=== PATIENT | male | born 1980 | race African-American/Black ===

== ENCOUNTER 2023-12-21 09:33 | Outpatient (CLI) | payer OTHER | END 2023-12-21 09:34 | disposition home or self-care (01) | LOC: CSHWCC 09:33 | PROVIDERS: ATTEND Nurse Practitioner Family | DX: I87.323 Chronic venous hypertension (idiopathic) with inflammation of bilateral lower extremity (principal); L97.212 Non-pressure chronic ulcer of right calf with fat layer exposed; L97.322 Non-pressure chronic ulcer of left ankle with fat layer exposed; M32.9 Systemic lupus erythematosus, unspecified; F19.10 Other psychoactive substance abuse, uncomplicated | CPT/HCPCS: 97597; 99214; G0463 ==